=== PATIENT | female | born 1960 | race Caucasian/White ===

== ENCOUNTER 2020-11-23 08:28 | Outpatient (REF) | payer OTHER, SELFPAY ==
[2020-11-23 11:40] LABS: Cholesterol 193 mg/dL; HDL Cholesterol 77 mg/dL; LDL Cholesterol Calculated 107 mg/dl; Triglycerides 46 mg/dL
[2020-11-23 11:51] LABS: Vitamin D 25-OH Total 31.9 ng/mL (>30)
== END 2020-11-23 08:29 | disposition home or self-care (01) ==
LOC: HO.HMGCLDS 08:28
PROVIDERS: PCP Internal Medicine; Visit Provider Internal Medicine
DX: Z00.00 Encounter for general adult medical examination without abnormal findings (principal); E78.2 Mixed hyperlipidemia
CPT/HCPCS: 36415; 80061; 82306

== ENCOUNTER 2021-07-26 06:28 | Outpatient (REF) | payer OTHER, SELFPAY ==
[2021-07-26 11:37] LABS: Appearance Urine HAZY; Color Urine YELLOW; Glucose Urine UA NEG (NEG); Leukocyte Esterase Urine 1+ (NEG); Nitrite Urine NEG (NEG); PH 6.5 (5.0-8.0); Urine Blood TRACE (NEG); Urine Ketones NEG (NEG); Urine Protein NEG (NEG-TRACE)
[2021-07-26 11:43] LABS: Hematocrit 37.5 % (37-47); Hemoglobin 12.4 g/dl (12.0-16.0); Mean Corpuscular HGB Conc 33.1 g/dl (31.0-35.0); Mean Corpuscular Volume 87.6 fL (80-98); Mean Platelet Volume 10.7 fL (9.4-12.3); Platelet Count 191 X10*3/uL (160-400); Red Blood Count 4.28 X10*6/uL (4.20-5.50); Red Cell Distribution Width 12.8 % (11.0-16.0); White Blood Count 4.3 X10*3/uL (4.8-10.8)
[2021-07-26 13:08] LABS: Bacteria Urine 1+ /LPF; RBC Urine 0-2 /HPF (0); Squamous Epithelial Cell Urine 1+ /LPF
[2021-07-26 14:16] LABS: Alanine Aminotransferase 13 U/L (0-31); Albumin Level 4.2 g/dL (3.5-5.0); Alkaline Phosphatase 89 U/L (39-117); Anion Gap 12 (12-20); Aspartate Amino Transferase 21 U/L (5-31); Bilirubin Total 0.5 mg/dL (0.0-1.0); Blood Urea Nitrogen 7 mg/dL (9-16); Calcium 9.2 mg/dL (8.4-10.2); Carbon Dioxide 27 mmol/L (22-29); Chloride 105 mmol/L (96-108); Cholesterol 194 mg/dL; Estimated Glomerular Filt Rate > 60; Glucose Fasting 81 mg/dL (60-99); HDL Cholesterol 73 mg/dL; LDL Cholesterol Calculated 110 mg/dl; Potassium 3.7 mmol/L (3.3-5.1); Sodium 140 mmol/L (135-145); Total Protein 6.6 g/dL (6.5-8.0); Triglycerides 58 mg/dL
== END 2021-07-26 06:29 | disposition home or self-care (01) ==
LOC: HO.HMGCLDS 06:28
PROVIDERS: PCP Internal Medicine; Visit Provider Internal Medicine
DX: Z00.00 Encounter for general adult medical examination without abnormal findings (principal); E78.5 Hyperlipidemia, unspecified
CPT/HCPCS: 36415; 80053; 80061; 81001; 84443; 85027

== ENCOUNTER 2022-07-29 06:17 | Outpatient (REF) | payer OTHER, SELFPAY ==
[2022-07-29 11:25] LABS: Appearance Urine Clear; Color Urine Yellow; Glucose Urine UA Negative (Negative); Hematocrit 36.6 % (37.0-47.0); Hemoglobin 12.3 g/dl (12.0-16.0); Leukocyte Esterase Urine Negative (Negative); Mean Corpuscular HGB Conc 33.6 g/dl (31.0-35.0); Mean Corpuscular Hemoglobin 29.1 pg (27.0-33.0); Mean Corpuscular Volume 86.5 fL (80.0-98.0); Mean Platelet Volume 10.5 fL (9.4-12.3); Nitrite Urine Negative (Negative); Platelet Count 232 X10*3/uL (160-400); Red Blood Count 4.23 X10*6/uL (4.20-5.50); Specific Gravity - Urine 1.015 (1.005-1.025); Urine Blood Negative (Negative); Urine Ketones Negative (Negative); Urine Protein Negative (Neg-Trace); White Blood Count 4.8 X10*3/uL (4.8-10.8)
[2022-07-29 11:32] LABS: Bacteria Urine None Seen (None Seen); Hyaline Casts Urine 0-2 /LPF (0-2); RBC Urine 0-2 /HPF (0-2); Squamous Epithelial Cell Urine 0-2 /HPF (0-2); WBC Urine 0-5 /HPF (0-5)
[2022-07-29 11:37] LABS: Alanine Aminotransferase 14 U/L (0-31); Albumin Level 4.3 g/dL (3.5-5.0); Alkaline Phosphatase 99 U/L (39-117); Anion Gap 14 (12-20); Aspartate Amino Transferase 21 U/L (5-31); Bilirubin Total 0.6 mg/dL (0.0-1.0); Blood Urea Nitrogen 9 mg/dL (9-16); Calcium 9.2 mg/dL (8.4-10.2); Carbon Dioxide 25 mmol/L (22-29); Chloride 103 mmol/L (96-108); Cholesterol 207 mg/dL; Estimated Glomerular Filt Rate > 60; Glucose Fasting 90 mg/dL (60-99); HDL Cholesterol 65 mg/dL; LDL Cholesterol Calculated 130 mg/dl; Potassium 3.7 mmol/L (3.3-5.1); Sodium 138 mmol/L (135-145); Triglycerides 64 mg/dL
[2022-07-29 11:59] LABS: TSH reflex Free T4 3.58 uIU/mL (0.32-4.0)
== END 2022-07-29 06:18 | disposition home or self-care (01) ==
LOC: HO.HMGCLDS 06:17
PROVIDERS: PCP Internal Medicine; Visit Provider Internal Medicine
DX: Z00.00 Encounter for general adult medical examination without abnormal findings (principal)
CPT/HCPCS: 36415; 80053; 80061; 81001; 84443; 85027

== ENCOUNTER 2023-08-04 07:01 | Outpatient (REF) | payer OTHER, SELFPAY ==
[2023-08-04 11:09] LABS: MANUAL DIFF FLAG NO
[2023-08-04 11:20] LABS: Basophils Percent Auto 0.9 % (0-2); Eosinophils Absolute Auto 0.3 X10*3/uL (0.0-0.4); Eosinophils Percent Auto 5.7 % (0-4); Hematocrit 39.5 % (37.0-47.0); Hemoglobin 12.9 g/dl (12.0-16.0); Lymphocytes Absolute Auto 1.7 X10*3/uL (1.2-4.9); Lymphocytes Percent Auto 36.8 % (20-40); Mean Corpuscular HGB Conc 32.7 g/dl (31.0-35.0); Mean Corpuscular Hemoglobin 28.4 pg (27.0-33.0); Mean Platelet Volume 11.1 fL (9.4-12.3); Monocytes Absolute Auto 0.3 X10*3/uL (0.1-1.2); Monocytes Percent Auto 6.4 % (2-11); Neutrophils Absolute Auto 2.3 x10*3/uL (2.0-8.3); Neutrophils Percent Auto 50.2 % (45-73); Platelet Count 182 X10*3/uL (160-400); Red Blood Count 4.54 X10*6/uL (4.20-5.50); White Blood Count 4.5 X10*3/uL (4.8-10.8)
[2023-08-04 11:55] LABS: Alanine Aminotransferase 13 U/L (0-31); Albumin Level 4.1 g/dL (3.5-5.0); Alkaline Phosphatase 90 U/L (39-117); Anion Gap 15 (12-20); Aspartate Amino Transferase 22 U/L (5-31); Bilirubin Total 0.5 mg/dL (0.0-1.0); Blood Urea Nitrogen 12 mg/dL (9-16); Calcium 9.7 mg/dL (8.4-10.2); Carbon Dioxide 25 mmol/L (22-29); Chloride 105 mmol/L (96-108); Cholesterol 196 mg/dL (<200); Estimated Glomerular Filt Rate > 60; Glucose Fasting 83 mg/dL (60-99); HDL Cholesterol 70 mg/dL (>40); LDL Cholesterol Calculated 117 mg/dL (<100); Potassium 3.9 mmol/L (3.3-5.1); Sodium 141 mmol/L (135-145); Total Protein 7.1 g/dL (6.5-8.0); Triglycerides 47 mg/dL (<150)
[2023-08-04 12:14] LABS: TSH reflex Free T4 3.85 uIU/mL (0.32-4.0); Vitamin D 25-OH Total 37.3 ng/mL (>30)
== END 2023-08-04 07:02 | disposition home or self-care (01) ==
LOC: HO.HMGCLDS 07:01
PROVIDERS: PCP Internal Medicine; Visit Provider Internal Medicine
DX: Z00.00 Encounter for general adult medical examination without abnormal findings (principal); E78.5 Hyperlipidemia, unspecified; E55.9 Vitamin D deficiency, unspecified
CPT/HCPCS: 36415; 80053; 80061; 82306; 84443; 85025

== ENCOUNTER 2023-08-07 07:50 | Outpatient (AMB) | payer OTHER, SELFPAY ==
--- NOTE | 2023-08-07 08:05 | MHC.PC.OV ---
Vital Signs 08/07/23 08:06 Height 5 ft 4 in Weight 156 lb BMI 26.8 BP 116/74 Blood Pressure Location Lt brachial Position Sitting Pulse 81 Pulse Source Pulse Oximeter Pulse Oximetry (%) 98 Oxygen Delivery Method Room Air Intake Visit Reasons: annual PE Intake Note: Pt is here today for PE. Allergies sulfamethoxazole [From Bactrim] Allergy (Intermediate, Verified 08/07/23 08:06) Rash trimethoprim [From Bactrim] Allergy (Intermediate, Verified 08/07/23 08:06) Rash amoxicillin [Augmentin] Allergy (Unknown, Verified 08/07/23 08:06) unknown clavulanic acid [Augmentin] Allergy (Unknown, Verified 08/07/23 08:06) unknown epinephrine Allergy (Unknown, Verified 08/07/23 08:06) unknown Tobacco use date assessed: 08/07/23 Dental Screening Dental Screen Date: 08/07/23 Did you have a dental visit in the last 12 months?: Yes Did you have a dental problem in the last 6 months where you did not have access to dental care?: No Was dental information given to patient?: Patient has dentist HPI annual PE HPI Details Pt presents for PE. [facility] Medical History Normal Pap smear Annual physical exam Hyperlipidemia Osteopenia History of mammogram Surgical History H/O colonoscopy No pertinent past surgical history Family History Father COPD (chronic obstructive pulmonary disease) Mother COPD (chronic obstructive pulmonary disease) Sister Cancer of pancreas Sister History of bilateral mastectomy Social History Housing: House Patient Tobacco Use Status: Never used Tobacco e-Cigarette/Vaping Use: Never Used Current occupational status: employed Cognitive needs: No Hearing needs: No Vision needs: Yes Questionnaire PHQ-9 Over the last 2 weeks, how often have you been bothered by any of the following problems? 1. Little interest or pleasure in doing things: not at all 2. Feeling down, depressed, or hopeless: not at all 3. Trouble falling or staying asleep, or sleeping too much: not at all 4. Feeling tired or having little energy: not at all 5. Poor appetite or overeating: not at all 6. Feeling bad about yourself - or that you are a failure or have let yourself or your family down: not at all 7. Trouble concentrating on things, such as reading the newspaper or watching television: not at all 8. Moving or speaking so slowly that other people could have noticed. Or the opposite - being so fidgety or restless that you have been moving around a lot more than usual: not at all 9. Thoughts that you would be better off or of hurting yourself in some way: not at all Total score: 0 Depression Screening Interpretation: Negative Source: Developed by Drs. Sanchez Orozco, Yaima Shah, Myron Cazares and colleagues, with an educational barbara from [employer]. Thrive Questionnaire Date Thrive assessed: 08/07/23 I am a: Patient What is your living situation today?: I have a steady place to live Within the past 12 months, did the food you bought not last and you didn't have the money to get more?: Never true Within the past 12 months, did you worry whether your food would run out before you got money to buy more?: Never true Do you have trouble paying for medicines?: No Do you have trouble getting transportation to medical appointments?: No Do you have trouble paying your heating and electricity bill?: No Do you have trouble taking care of your child, family member or friend?: No Do you have trouble with day-to-day activities such as bathing, preparing meals, shopping, managing finances, etc.?: No Are you currently unemployed and looking for a job?: No Are you interested in more education?: No Please select the resources that you would like help with: None AUDIT C Alcohol Use Questionnaire (AUDIT-C) 1. How often do you have a drink containing alcohol?: Monthly or less 2. How many drinks containing alcohol do you have on a typical day when you are drinking?: 1 or 2 3. How often do you have six or more drinks on one occasion?: Never Total Score: 1 LUCY-7 AMB Questionnaire LUCY-7 Date LUCY - 7 assessed: 08/07/23 Feeling nervous, anxious, or on edge: 0 = Not at all Not being able to stop or control worryin = Not at all Worrying too much about different things: 0 = Not at all Trouble relaxin = Not at all Being so restless that it is hard to sit still: 0 = Not at all Becoming easily annoyed or irritable: 0 = Not at all Feeling afraid as if something awful might happen: 0 = Not at all Total LUCY-7 score (0-4 normal; 5-9 mild; 10-14 moderate; 15-21 severe): 0 Source: Developed by Drs. Sanchez Orozco, Yaima Shah, Myron Cazares and colleagues, with an educational barbara from [employer]. Review of Systems Const All systems reviewed & are unremarkable except as noted in HPI and below Reports no additional complaints Eyes Reports no additional complaints ENT Reports no additional complaints Card Reports no additional complaints Resp Reports no additional complaints GI Reports no additional complaints Musc Reports no additional complaints Skin/Breast Reports system reviewed and no additional complaints, except as documented Physical exam (Primary Care) Vital Signs: Last Vital Signs Pulse 81 08/07/23 08:06 BP 116/74 08/07/23 08:06 Pulse Ox 98 08/07/23 08:06 Oxygen Delivery Method Room Air 08/07/23 08:06 BMI result Body Mass Index 26.8 Tobacco/Smoking Status: Tobacco use Status Tobacco use date assessed 08/07/23 08/07/23 08:11 Patient Tobacco Use Status Never used Tobacco 08/07/23 08:11 e-Cigarette/Vaping Use Never Used 08/07/23 08:11 Depression Screening Interpretation: Negative Thrive Assessment: Date of Thrive Assessment Date Thrive assessed 08/02/22 08/07/23 08:11 Const General: no acute distress HENMT Head: Yes normal to inspection Ears: hearing grossly normal bilaterally General nose exam: Normal external nose present Face and sinus: Yes normal facial exam Mouth: Normal oral and palatal mucosa present Teeth and gingiva: dentition normal Eyes General: appearance normal, both eyes and all related structures Neck Neck: Yes no lymphadenopathy and Yes supple Resp Effort & Inspection: normal respiratory effort Auscultation: clear to auscultation bilaterally Cardio Rhythm: regular rhythm Heart sounds: S1 normal heart sound present and S2 normal heart sound present GI Inspection: Yes normal to inspection Palpation (GI): Soft to palpation Percussion: Yes normal to percussion Auscultation: normal bowel sounds External Female Exam: normal external appearance Assessment and Plan Assessment & Plan (1) Annual physical exam: Code(s): Z00.00 - Encounter for general adult medical examination without abnormal findings Plan: well balanced diet, regular exercise, up to date with mammogram, colonoscopy, 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 Panel Fast 365 Days Z00.00 - Encounter for general adult medical examination without abnormal findings Lipid Panel 365 Days Z00.00 - Encounter for general adult medical examination without abnormal findings Complete Blood Count Auto Diff 365 Days Z00.00 - Encounter for general adult medical examination without abnormal findings Coding Level of Care Code Est Pt Prev Care 40-64y(75381) Diagnoses Annual physical exam Z00.00
[2023-08-07 08:06] VITALS: BP 116/74; PULSE 81; O2SAT 98; BMI 26.8
== END 2023-08-07 08:26 | disposition home or self-care (01) ==
PROVIDERS: Visit Provider Internal Medicine
DX: Z00.00 Encounter for general adult medical examination without abnormal findings (principal)
CPT/HCPCS: 99396

== ENCOUNTER 2024-08-07 09:51 | Outpatient (REF) | payer OTHER, SELFPAY ==
[2024-08-07 13:39] LABS: MANUAL DIFF FLAG NO
[2024-08-07 14:02] LABS: Basophils Absolute Auto 0.1 X10*3/uL (0.0-0.2); Basophils Percent Auto 1.1 % (0-2); Eosinophils Absolute Auto 0.2 X10*3/uL (0.0-0.4); Eosinophils Percent Auto 4.7 % (0-4); Hematocrit 39.8 % (37.0-47.0); Hemoglobin 13.4 g/dl (12.0-16.0); Imm Gran Abs Auto 0.02 X10*3/uL (0.00-0.03); Imm Gran Pct Auto 0.4 % (0.0-0.4); Lymphocytes Absolute Auto 1.4 X10*3/uL (1.2-4.9); Lymphocytes Percent Auto 28.7 % (20-40); Mean Corpuscular HGB Conc 33.7 g/dl (31.0-35.0); Mean Corpuscular Hemoglobin 28.9 pg (27.0-33.0); Mean Corpuscular Volume 85.8 fL (80.0-98.0); Monocytes Absolute Auto 0.3 X10*3/uL (0.1-1.2); Neutrophils Absolute Auto 2.7 x10*3/uL (2.0-8.3); Neutrophils Percent Auto 58.1 % (45-73); Platelet Count 194 X10*3/uL (160-400); Red Blood Count 4.64 X10*6/uL (4.20-5.50); Red Cell Distribution Width 12.9 % (11.0-16.0); White Blood Count 4.7 X10*3/uL (4.8-10.8)
[2024-08-07 14:08] LABS: Alanine Aminotransferase 14 U/L (0-31); Albumin Level 4.3 g/dL (3.5-5.0); Alkaline Phosphatase 95 U/L (39-117); Anion Gap 12 (12-20); Aspartate Amino Transferase 22 U/L (5-31); Bilirubin Total 0.6 mg/dL (0.0-1.0); Blood Urea Nitrogen 10 mg/dL (9-16); Calcium 9.5 mg/dL (8.4-10.2); Carbon Dioxide 25 mmol/L (22-29); Chloride 106 mmol/L (96-108); Cholesterol 198 mg/dL (<200); Estimated Glomerular Filt Rate > 60; Glucose Fasting 89 mg/dL (60-99); HDL Cholesterol 73 mg/dL (>40); LDL Cholesterol Calculated 113 mg/dL (<100); Potassium 3.6 mmol/L (3.3-5.1); Sodium 139 mmol/L (135-145); Total Protein 7.5 g/dL (6.5-8.0); Triglycerides 60 mg/dL (<150)
== END 2024-08-07 09:52 | disposition home or self-care (01) ==
LOC: HO.HMGCLDS 09:51
PROVIDERS: PCP Internal Medicine; Visit Provider Internal Medicine
DX: Z00.00 Encounter for general adult medical examination without abnormal findings (principal)
CPT/HCPCS: 36415; 80053; 80061; 85025

== ENCOUNTER 2024-08-08 07:29 | Outpatient (AMB) | payer OTHER, SELFPAY ==
--- NOTE | 2024-08-08 07:40 | MHC.PC.OV ---
Vital Signs 08/08/24 07:42 Height 5 ft 4 in Weight 155 lb BMI 26.6 BP 120/80 Blood Pressure Location Lt brachial Position Sitting Pulse 75 Pulse Source Pulse Oximeter Pulse Oximetry (%) 96 Oxygen Delivery Method Room Air Intake Visit Reasons: annual PE Intake Note: Pt is here today for her PE Allergies sulfamethoxazole [From Bactrim] Allergy (Intermediate, Verified 08/08/24 07:42) Rash trimethoprim [From Bactrim] Allergy (Intermediate, Verified 08/08/24 07:42) Rash amoxicillin [Augmentin] Allergy (Unknown, Verified 08/08/24 07:42) unknown clavulanic acid [Augmentin] Allergy (Unknown, Verified 08/08/24 07:42) unknown epinephrine Allergy (Unknown, Verified 08/08/24 07:42) unknown Medication List - Last Reconciled 08/08/24 by Zohra Sánchez MD No Known Home Meds Tobacco use date assessed: 08/08/24 Dental Screening Dental Screen Date: 08/08/24 Did you have a dental visit in the last 12 months?: Yes Did you have a dental problem in the last 6 months where you did not have access to dental care?: No Was dental information given to patient?: Patient has dentist HPI annual PE HPI Details Pt presents for PE. [facility] Medical History Normal Pap smear Annual physical exam Hyperlipidemia Osteopenia History of mammogram Surgical History H/O colonoscopy No pertinent past surgical history Family History Father COPD (chronic obstructive pulmonary disease) Mother COPD (chronic obstructive pulmonary disease) Sister Cancer of pancreas Sister History of bilateral mastectomy Social History Housing: House Patient Tobacco Use Status: Never used Tobacco e-Cigarette/Vaping Use: Never Used Current occupational status: employed Cognitive needs: No Hearing needs: No Vision needs: Yes Questionnaire PHQ-9 Over the last 2 weeks, how often have you been bothered by any of the following problems? 1. Little interest or pleasure in doing things: not at all 2. Feeling down, depressed, or hopeless: not at all 3. Trouble falling or staying asleep, or sleeping too much: not at all 4. Feeling tired or having little energy: not at all 5. Poor appetite or overeating: not at all 6. Feeling bad about yourself - or that you are a failure or have let yourself or your family down: not at all 7. Trouble concentrating on things, such as reading the newspaper or watching television: not at all 8. Moving or speaking so slowly that other people could have noticed. Or the opposite - being so fidgety or restless that you have been moving around a lot more than usual: not at all 9. Thoughts that you would be better off or of hurting yourself in some way: not at all Total score: 0 Depression Screening Interpretation: Negative Depression Screening Done: Yes [id number] - PHQ-9 Billing: Yes Source: Developed by Drs. Sanchez Orozco, Yaima Shah, Myron Cazares and colleagues, with an educational barbara from [employer]. Thrive Questionnaire Date Thrive assessed: 08/08/24 I am a: Patient What is your living situation today?: I have a steady place to live Within the past 12 months, did the food you bought not last and you didn't have the money to get more?: Never true Within the past 12 months, did you worry whether your food would run out before you got money to buy more?: Never true Do you have trouble paying for medicines?: No Do you have trouble getting transportation to medical appointments?: No Do you have trouble paying your heating and electricity bill?: No Do you have trouble taking care of your child, family member or friend?: No Do you have trouble with day-to-day activities such as bathing, preparing meals, shopping, managing finances, etc.?: No Are you interested in more education?: No Please select the resources that you would like help with: None Currently or been in a relationship where the following occur: No concerns reported THRIVE Score: 0 AUDIT C Alcohol Use Questionnaire (AUDIT-C) 1. How often do you have a drink containing alcohol?: Never Total Score: 0 LUCY-7 AMB Questionnaire LUCY-7 Date LUCY - 7 assessed: 08/08/24 Feeling nervous, anxious, or on edge: 0 = Not at all Not being able to stop or control worryin = Not at all Worrying too much about different things: 0 = Not at all Trouble relaxin = Not at all Being so restless that it is hard to sit still: 0 = Not at all Becoming easily annoyed or irritable: 0 = Not at all Feeling afraid as if something awful might happen: 0 = Not at all Total LUCY-7 score (0-4 normal; 5-9 mild; 10-14 moderate; 15-21 severe): 0 Source: Developed by Drs. Sanchez Orozco, Yaima Shah, Myron Cazares and colleagues, with an educational barbara from [employer]. Review of Systems Const All systems reviewed & are unremarkable except as noted in HPI and below Reports no additional complaints Eyes Reports no additional complaints ENT Reports no additional complaints Card Reports no additional complaints Resp Reports no additional complaints GI Reports no additional complaints Reports no additional complaints Physical exam (Primary Care) Vital Signs: Last Vital Signs Pulse 75 08/08/24 07:42 BP 136/84 08/08/24 07:42 Pulse Ox 96 08/08/24 07:42 Oxygen Delivery Method Room Air 08/08/24 07:42 BMI result Body Mass Index 26.6 Tobacco/Smoking Status: Tobacco use Status Tobacco use date assessed 08/08/24 08/08/24 07:45 Patient Tobacco Use Status Never used Tobacco 08/08/24 07:41 e-Cigarette/Vaping Use Never Used 08/08/24 07:41 PHQ-9: PHQ-9 Score PHQ-9: Total score 0 08/08/24 07:41 Depression Screening Interpretation: Negative Thrive Assessment: Date of Thrive Assessment Date Thrive assessed 08/08/24 08/08/24 07:45 Currently or been in a relationship where the following occur: No concerns reported Const General: no acute distress HENMT Head: Yes normal to inspection Face and sinus: Yes normal facial exam Throat: Yes posterior oropharynx normal Eyes General: appearance normal, both eyes and all related structures Neck Neck: Yes no lymphadenopathy and Yes supple Resp Effort & Inspection: normal respiratory effort Auscultation: clear to auscultation bilaterally Cardio Rhythm: regular rhythm Heart sounds: S1 normal heart sound present and S2 normal heart sound present GI Inspection: Yes normal to inspection Palpation (GI): Soft to palpation Percussion: Yes normal to percussion Auscultation: normal bowel sounds Coding Level of Care Code Est Pt Prev Care 40-64y(05037) Diagnoses Annual physical exam Z00.00 Assessment & Plan Assessment & Plan (1) Annual physical exam: Code(s): Z00.00 - Encounter for general adult medical examination without abnormal findings Category: Medical Plan: WELL-BALANCED DIET REGULAR PHYSICAL ACTIVITY DISCUSSED WITH THE PATIENT.. 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 Panel Fast 1 Year E55.9 - Vitamin D deficiency, unspecified, Z00.00 - Encounter for general adult medical examination without abnormal findings Complete Blood Count Auto Diff 1 Year E55.9 - Vitamin D deficiency, unspecified, Z00.00 - Encounter for general adult medical examination without abnormal findings Vitamin D 25-OH Total 1 Year E55.9 - Vitamin D deficiency, unspecified, Z00.00 - Encounter for general adult medical examination without abnormal findings
[2024-08-08 07:42] VITALS: BP 120/80; PULSE 75; O2SAT 96; BMI 26.6
== END 2024-08-08 08:16 | disposition home or self-care (01) ==
PROVIDERS: PCP Internal Medicine; Visit Provider Internal Medicine
DX: Z00.00 Encounter for general adult medical examination without abnormal findings (principal)

== ENCOUNTER → 2024-08-08 07:29 | Outpatient (BNVA) | payer MEDICAID, SELFPAY | PROVIDERS: PCP Internal Medicine; Visit Provider Internal Medicine | DX: Z00.00 Encounter for general adult medical examination without abnormal findings (principal); E78.5 Hyperlipidemia, unspecified; E55.9 Vitamin D deficiency, unspecified | CPT/HCPCS: 96127; 99396 ==

== ENCOUNTER 2024-11-08 08:43 | Outpatient (AMB) | payer OTHER, SELFPAY ==
--- NOTE | 2024-11-08 09:08 | AM.OFFWIN_ITS ---
Intake Vital Signs 11/08/24 09:10 Weight 162 lb BP 130/80 Blood Pressure Location Lt brachial Position Sitting Pulse 90 Pulse Source Pulse Oximeter Pulse Oximetry (%) 98 Oxygen Delivery Method Room Air Intake Visit Reasons: EP-rt arm pain Intake Note: Patient here for right arm injury, she was walking on treadmill and stepped down and left it running and when she went to get back on it she fell and grabbed on to the handle. Patient Tobacco Use Status: Never used Tobacco Allergies sulfamethoxazole [From Bactrim] Allergy (Intermediate, Verified 11/08/24 09:11) Rash trimethoprim [From Bactrim] Allergy (Intermediate, Verified 11/08/24 09:11) Rash amoxicillin [Augmentin] Allergy (Unknown, Verified 11/08/24 09:11) unknown clavulanic acid [Augmentin] Allergy (Unknown, Verified 11/08/24 09:11) unknown epinephrine Allergy (Unknown, Verified 11/08/24 09:11) unknown Do you need a note to return to daycare/school/sports/work: No HPI EP-rt arm pain HPI Details This is a 64-year-old female patient who presents to the walk-in clinic today with a right upper arm injury. She states that she was using her treadmill at home, and when getting back onto it after stepping off briefly, she lost her balance and held on to the side rail, while treadmill was running. This pulled on her right arm and she has been sore since this incident. She denies feeling any popping or tearing sensation. She feels some soreness on the outside of her person lower deltoid area. She states she has good shoulder and elbow mobility. Denies any swelling. Has not utilized any home treatment for this. [facility] Medical History Normal Pap smear Annual physical exam Hyperlipidemia Osteopenia History of mammogram Surgical History H/O colonoscopy No pertinent past surgical history Family History Father COPD (chronic obstructive pulmonary disease) Mother COPD (chronic obstructive pulmonary disease) Sister Cancer of pancreas Sister History of bilateral mastectomy Social History Housing: House Patient Tobacco Use Status: Never used Tobacco e-Cigarette/Vaping Use: Never Used Current occupational status: employed Cognitive needs: No Hearing needs: No Vision needs: Yes Review of Systems Const All systems reviewed & are unremarkable except as noted in HPI and below Physical Exam Vital Signs: Last Vital Signs Pulse 90 11/08/24 09:10 BP 130/80 11/08/24 09:10 Pulse Ox 98 11/08/24 09:10 Oxygen Delivery Method Room Air 11/08/24 09:10 Const General: cooperative, healthy appearing, comfortable and no acute distress Limitations: no limitations HEENT Head: Yes normal to inspection Ears: hearing grossly normal bilaterally Resp Effort & Inspection: normal respiratory effort Skin General skin exam: no rashes or lesions noted Neuro General: tone normal and moves all extremities Extrem Other: Mild tenderness right upper arm at lower aspect/insertion of deltoid. No swelling, bruising, bulging, or excessive warmth noted. Full ROM elbow and shoulder. No signs of RTC impingement. Equal/strong hand strength bilaterally. Normal capillary refill. Psych Appearance: grossly normal Mental Status: mental status grossly normal Speech and movement: Normal speech and movement present Assessment & Plan Assessment & Plan (1) Strain of right deltoid muscle: Code(s): S46.811A - Strain of other muscles, fascia and tendons at shoulder and upper arm level, right arm, initial encounter Qualifiers: Encounter type: initial encounter Qualified Code(s): S46.811A - Strain of other muscles, fascia and tendons at shoulder and upper arm level, right arm, initial encounter Plan: Symptoms consistent with myofascial strain. Advised rest, heat/ice application as tolerated, gentle [id number] exercises, use of NSAIDs. Offered prescription NSAIDs, however patient is going to take [id number] Motrin. We discussed a regimen of 600mg 2-3 times per day for the next several days to see if this helps. We discussed that if symptoms worsen or new symptoms develop, including increased pain, swelling of area, she should return to the clinic or f/e with PCP. She verbalizes understanding and agrees to plan. Coding Level of Care Code Est Pt Level 4 (87535) Diagnoses Strain of right deltoid muscle, initial encounter S46.811A Encounter type: initial encounter
[2024-11-08 09:10] VITALS: BP 130/80; PULSE 90; O2SAT 98
== END 2024-11-08 09:45 | disposition home or self-care (01) ==
PROVIDERS: PCP Internal Medicine; Visit Provider Nurse Practitioner Family
DX: S46.811A Strain of other muscles, fascia and tendons at shoulder and upper arm level, right arm, initial encounter (principal)

== ENCOUNTER → 2024-11-08 08:43 | Outpatient (BNVA) | payer OTHER, SELFPAY | PROVIDERS: PCP Internal Medicine | DX: S46.811A Strain of other muscles, fascia and tendons at shoulder and upper arm level, right arm, initial encounter (principal) | CPT/HCPCS: 99212 ==

== ENCOUNTER 2024-12-26 08:00 | Outpatient (AMB) | payer OTHER, SELFPAY ==
[2024-12-26 08:08] VITALS: BP 130/84; PULSE 93; O2SAT 98
--- NOTE | 2024-12-26 08:08 | AM.OFFWIN_ITS ---
Intake Vital Signs 12/26/24 08:08 Weight 160 lb BP 130/84 Blood Pressure Location Lt brachial Position Sitting Pulse 93 Pulse Source Pulse Oximeter Pulse Oximetry (%) 98 Oxygen Delivery Method Room Air Intake Visit Reasons: EP-rt arm muscle strain Intake Note: Patient here because she would like to follow up on her right arm muscle strain that she was seen here for a couple of weeks ago. Patient Tobacco Use Status: Never used Tobacco Allergies sulfamethoxazole [From Bactrim] Allergy (Intermediate, Verified 12/26/24 08:10) Rash trimethoprim [From Bactrim] Allergy (Intermediate, Verified 12/26/24 08:10) Rash amoxicillin [Augmentin] Allergy (Unknown, Verified 12/26/24 08:10) unknown clavulanic acid [Augmentin] Allergy (Unknown, Verified 12/26/24 08:10) unknown epinephrine Allergy (Unknown, Verified 12/26/24 08:10) unknown Do you need a note to return to daycare/school/sports/work: No HPI HPI Comments History of Present Illness Details 64 y/o female patient [facility]/o right Arm Deltoid muscle strain for 6 weeks now. Pt injured her muscle while working out on Treadmill back in November. Reports pain with ROM. She has been using Acet aminophen, ICE/Hot with some relief. Reports that pain worse at night time while sleeping - pain keeps her up. [facility] Medical History Normal Pap smear Annual physical exam Hyperlipidemia Osteopenia History of mammogram Surgical History H/O colonoscopy No pertinent past surgical history Family History Father COPD (chronic obstructive pulmonary disease) Mother COPD (chronic obstructive pulmonary disease) Sister Cancer of pancreas Sister History of bilateral mastectomy Social History Housing: House Patient Tobacco Use Status: Never used Tobacco e-Cigarette/Vaping Use: Never Used Current occupational status: employed Cognitive needs: No Hearing needs: No Vision needs: Yes Review of Systems Const All systems reviewed & are unremarkable except as noted in HPI and below Physical Exam Vital Signs: Last Vital Signs Pulse 93 12/26/24 08:08 BP 130/84 12/26/24 08:08 Pulse Ox 98 12/26/24 08:08 Oxygen Delivery Method Room Air 12/26/24 08:08 Const General: cooperative and no acute distress Nutritional Appearance: overweight Orientation/consciousness: patient oriented x3 Neuro General: patient oriented x3, gait normal and moves all extremities Extrem Right upper extremity: shoulder/upper arm Details: normal to inspection, tenderness Location: over the biceps tendon and over the deltoid bursa and normal ROM (Pain with ROM); no swelling, no ecchymosis and no crepitus Assessment & Plan Assessment & Plan (1) Strain of right deltoid muscle: Code(s): S46.811A - Strain of other muscles, fascia and tendons at shoulder and upper arm level, right arm, initial encounter Qualifiers: Encounter type: subsequent encounter Qualified Code(s): S46.811D - Strain of other muscles, fascia and tendons at shoulder and upper arm level, right arm, subsequent encounter Plan: Pain is improving, continue taking Acetaminophen or NSAIDs for pain relief Ordered PT Ordered Muscle relaxants. Orders: Orders PT Evaluation and Treatment Today S46.811D - Strain of other muscles, fascia and tendons at shoulder and upper arm level, right arm, subsequent encounter Medications: New cyclobenzaprine 5 mg PO BEDTIME 10 tabs 0RF S46.811D - Strain of other muscles, fascia and tendons at shoulder and upper arm level, right arm, subsequent encounter Coding Level of Care Code Est Pt Level 4 (61109) Diagnoses Strain of right deltoid muscle, subsequent encounter S46.811D Encounter type: subsequent encounter Time Spent (min) 20
== END 2024-12-26 08:29 | disposition home or self-care (01) ==
PROVIDERS: PCP Internal Medicine; Visit Provider Nurse Practitioner Family
DX: S46.811D Strain of other muscles, fascia and tendons at shoulder and upper arm level, right arm, subsequent encounter (principal)

== ENCOUNTER → 2024-12-26 08:00 | Outpatient (BNVA) | payer OTHER, SELFPAY | PROVIDERS: PCP Internal Medicine | DX: S46.811D Strain of other muscles, fascia and tendons at shoulder and upper arm level, right arm, subsequent encounter (principal) | CPT/HCPCS: 99212 ==

== ENCOUNTER 2025-02-25 07:00 | Outpatient (RCR) | payer OTHER, SELFPAY ==
--- NOTE | 2025-01-27 09:12 | MHC.PT.EP ---
[facility] [place] [facility] [place] [facility] [address] Meraz [address] [phone] F: [phone] F: [phone] F: [phone] F: [phone] Physical Therapy Plan of Care Date of Evaluation: 01/27/25 Date of Surgery: Diagnosis: strain of right deltoid muscle. Assessment: Patient is a 64 year old R handed female who presents with s/s consistent with strain of R deltoid muscle, R shoulder pain. She works with daily job demands including mostly reading and computer work. Patient past medical history is unremarkable. Current impairments include pain, posture, ROM, strength, activity tolerance and functional mobility. Functional limitations include decreased ability to reach around back, lift, carry, push, pull, sleep and dress. Patient is motivated with good rehab potential. Skilled PT will address impairments and functional limitations in order to achieve goals. Frequency and Duration: The patient will be seen 2x/week for 5 weeks Short Term Goals: I with HEP -2 weeks AROM full and pain free - 3 weeks Pain free sleeping - 3 weeks Max pain with ADLs 4/10 - 3 weeks Painter Helper Goals: Max pain with ADLs 2/10 - 5 weeks Strength 4/5 grossly - 5 weeks SPADI 10130 - 5 weeks Treatment Plan: Modalities to reduce pain, spasms and effusion. Manual therapy to restore motion and function. Therapeutic exercise to improve strength and flexibility. Neuromuscular re-education for posture and balance. Therapeutic activities to return to functional activities of daily living. Electronically signed by: Emilio Lang, PT Please sign and return to therapist. Thank you for your referral.
--- NOTE | 2025-05-16 10:02 | MHC.PT.DC ---
[facility] [place] [facility] [place] [facility] [place] [facility] [address] Pastor Meraz [address] [phone] F: [phone] F: [phone] F: [phone] F: [phone] Physical Therapy Discharge Report Diagnosis: strain of right deltoid muscle. Date of Surgery: Date of Evaluation: 01/27/25 Date of Discharge: 02/25/25 Treatments to Date: 5 Cancellations to Date: No Shows to Date: Discharge Status: Improved Function Independent with HEP Discharge Summary: 02/25/25: I with HEP. AROM full and pain free. pain free sleeping. Max pain 2/10. Strength 4/5 grossly except ER 4-/5. Pt has progressed towards or met all goals. no adverse reactions compliant throughout and appropriate to d/c to HEP At this time. 02/17/25: pt has been progressing well with skilled PT. less pain and tissue tension but s/s still persist to small degree. continue to progress as tolerated. 02/10/25: pt progressing well with skilled PT. no adverse reactions. continue to progress as tolerated. updated HEP. some ant delt tightness noted. 02/03/25: pt responded well to progression in strength and stretching. educated in posture. we will progress as tolerated. Patient is a 64 year old R handed female who presents with s/s consistent with strain of R deltoid muscle, R shoulder pain. She works with daily job demands including mostly reading and computer work. Patient past medical history is unremarkable. Current impairments include pain, posture, ROM, strength, activity tolerance and functional mobility. Functional limitations include decreased ability to reach around back, lift, carry, push, pull, sleep and dress. Patient is motivated with good rehab potential. Skilled PT will address impairments and functional limitations in order to achieve goals. Electronically signed by: Emilio Lang, PT Please sign and return to therapist. Thank you for your referral.
== END 2025-05-16 10:02 | disposition home or self-care (01) ==
LOC: HO.PTCHIC 07:00
PROVIDERS: PCP Internal Medicine; Visit Provider Nurse Practitioner Family
DX: S46.811D Strain of other muscles, fascia and tendons at shoulder and upper arm level, right arm, subsequent encounter (principal); X58.XXXD Exposure to other specified factors, subsequent encounter
CPT/HCPCS: 97110; 97140; 97161

== ENCOUNTER 2025-08-08 06:57 | Outpatient (REF) | payer OTHER, SELFPAY ==
--- OUTSIDE RECORDS SUMMARY | 2025-08-08 06:59 | XMS_ITS | Clinical Summary ---
Author Organization [facility] Address [address] [place] [phone] Phone Care Team Providers Care Marker Assembler Name Role Phone Zohra Sánchez MD Primary Care Provider [phone] Surgical History Surgery Date Site/Laterality Comments BREAST BIOPSY PROCEDURE: [place] BIOPSY BREAST OPEN INCISIONAL OTHER SURGICAL HISTORY PROCEDURE: HISTORY OTHER; COMMENT: cervix cryosurgery Medical History Medical History Date Comments History of rectal bleeding 07/23/2018 DX:Hi story of rectal bleeding Osteopenia 07/23/2018 DX:Osteopenia Pelvic mass 01/03/2018 DX:Pelvic mass Family History Medical History Relation Name Comments COPD Father COPD Mother Breast cancer Paternal Grandmother Breast cancer Sister Relation Name Status Comments Father Mother Paternal Grandmother Sister Social History Tobacco Use Types Packs/Day Years Used Date Smoking Tobacco: Never Smokeless Tobacco: Never Alcohol Use Standard Drinks/Week Comments No 0 (1 standard drink = 0.6 oz pur e alcohol) Comments No Sex and Gender Information Value Date Recorded Sex Assigned at Female 01/22/2025 2:12 PM EDT Legal Sex Female 10:59 PM EST Gender Identity Female 01/22/2025 2:12 PM EDT Sexual Orientation Straight 01/22/2025 2: 12 PM EDT Obstetrics History Last Filed Vital Signs Vital Sign Reading Time Taken Comments Blood Pressure - - Pulse - - Temperature - - Respiratory Rate - - Oxygen Saturation - - Inhaled Oxygen Concentration - - Weight 69.9 kg (154 lb) 03/26/2025 7:48 AM EDT Height 162.6 cm (5' 4 ) 03/26/2025 7:48 AM EDT Body Mass Index 26.43 03/26/2025 7:48 AM EDT Plan of Treatment Upcoming Encounters Date Type Department Care Team (Late st Contact Info) Description 10/17/2025 7:30 AM EST [facility]ointment [facility] [address] [phone] Health Maintenance Due Date Last Done Comments Colorectal Cancer Screening: Colonoscopy 1962 DTaP,Tdap,and Td Vaccines (1 - Tdap) 1981 Cervical Cancer Screening: Pap Smear 1983 Pneumococcal Vaccine: 50+ Years (1 of 1 - PCV) 02/26/2012 HIV Screening 10/09/2022 Hepatitis C Screening 10/09/2022 Social Influencers of Health Screening 10/09/2022 Depression Screening 11/06/2024 Influenza Vaccine (#1) 2025 07/29/2020 Breast Cancer Screening 04/18/2027 04/18/20, 03/26/2025, 03/25/2024, Additional history exists RSV Immunization Adult Patients (1 - 1-dose 75+ series) 2037 Zoster Vaccines Completed 05/21/2022, 03/05/2022 COVID-19 Vaccine Completed 08/27/2024, , 07/17/2022, Additional history exists HIB Vaccines Aged Out No longer eligi ble based on patient's age to complete this topic HPV Vaccines Aged Out No longer eligi ble based on patient's age to complete this topic Hepatitis A Vaccines Aged Out No long er eligible based on patient's age to complete this topic Hepatitis B Vaccines Aged Out No long er eligible based on patient's age to complete this topic IPV Vaccines Aged Out No longer eligi ble based on patient's age to complete this topic MMR Vaccines Aged Out No longer eligi ble based on patient's age to complete this topic Meningococcal ACWY Vaccine Aged Out N o longer eligible based on patient's age to complete this topic Meningococcal B Vaccine Aged Out No l onger eligible based on patient's age to complete this topic RSV Immunization Patients Under 20 months Aged Out No longer eligible based on patient's age to complete this topic Varicella Vaccines Aged Out No longer eligible based on patient's age to complete this topic Procedures Procedure Name Priority Date/Time Associated Diagnosis Comments MG MAMMO DIAGNOSTIC ADDL VIEWS RIGHT Routine 04/18/2025 10:07 AM EDT Breast asymmetry from Last 3 Months or Most Recently Relevant to Health Maintenance Results * MG Mammo Diagnostic Addl Views Right (04/18/2025 10:07 AM EDT) Anatomical Region Laterality Modality Breast Right Mammography 04/18/2025 10:1 1 AM EDT Impressions 04/18/2025 10:16 AM EDT Decreased prominence of an asymmetry in the upper right breast with diagnostic imaging. This may be partially related to 2 small cysts superimposed upon some fibroglandular tissue. Recommend diagnostic right mammography in 6 months ASSESSMENT: BI-RADS 3: PROBABLY BENIGN RECOMMENDATION(S): 1: Follow-up diagnostic mammogram RIGHT in 6 months. [facility] at [address], [address] -------- FINAL REPORT -------- Dictated By: Dino Vazquez Dictated Date: 04/18/2025 10:11 ET Assigned Physician: Dino Vazquez Reviewed and Electronically Signed By: Dino Vazquez Signed Date: 04/18/2025 10:16 ET Workstation ID: [id number] Transcribed By: Self Edit Transcribed Date: 04/18/2025 10:11 ET Narrative 04/18/2025 10:16 AM EDT EXAM: DIAGNOSTIC MAMMOGRAPHY, UNILATERAL RIGHT ULTRASOUND: DIAGNOSTIC ULTRASOUND, UNILATERAL RIGHT HISTORY: Abnormal screening mammogram. Incompletely characterized asymmetry superior right breast COMPARISON: Right mammography 03/26/25, 03/25/24, 03/15/23, a 03/25/22 TECHNIQUE: Tomosynthesis of the right breast using full field technique in the lateral medial projection. ADDITIONAL IMAGING: Tomosynthesis of the right breast in the MLO projection using spot compression High-frequency linear transducer ultrasound of the right breast targeted to the area(s) of clinical concern. Computer aided detection was not utilized. TISSUE DENSITY: There are scattered areas of fibroglandular density. (BI-RADS category B) FINDINGS: MAMMOGRAPHY: RIGHT BREAST: The suspected asymmetry in the superior right breast becomes much less prominent with diagnostic imaging. There is an equivocal small round equal density mass in the upper breast. No distortion. No suspicious calcification. No change in the region of a biopsy site marker. ULTRASOUND: RIGHT BREAST The entire upper breast was examined with a high-frequency linear transducer. No suspicious mass. No suspicious area of altered echotexture. There is a 0.5 cm cyst with benign features in the 1 o'clock position 5 cm from the right nipple. There is an oval 0.3 cm cyst with benign features in the 1 o'clock position 6 cm from the right nipple. These 2 findings may contribute to what I suspect is some aeration of overlying structures on the original mammogram. Procedure Note Dino Vazquez MD - 04/18/2025 EXAM: DIAGNOSTIC MAMMOGRAPHY, UNILATERAL RIGHT ULTRASOUND: DIAGNOSTIC ULTRASOUND, UNILATERAL RIGHT HISTORY: Abnormal screening mammogram. Incompletely characterizedasymmetry superior right breast COMPARISON: Right mammography 03/26/25, 03/25/24, 03/15/23, a 03/25/22 TECHNIQUE: Tomosynthesis of the right breast using full field technique inthe lateral medial projection. ADDITIONAL IMAGING: Tomosynthesis of the right breast in the MLOprojection using spot compression High-frequency linear transducer ultrasound of the right breast targetedto the area(s) of clinical concern. Computer aided detection was not utilized. TISSUE DENSITY: There are scattered areas of fibroglandular density.(BI-RADS category B) FINDINGS: MAMMOGRAPHY: RIGHT BREAST: The suspected asymmetry in the superior right breast becomes much lessprominent with diagnostic imaging. There is an equivocal small roundequal density mass in the upper breast. No distortion. No suspicious calcification. No change in the region of abiopsy site marker. ULTRASOUND: RIGHT BREAST The entire upper breast was examined with a high-frequency lineartransducer. No suspicious mass. No suspicious area of altered echotexture. There is a 0.5 cm cyst with benign features in the 1 o'clock position 5 cmfrom the right nipple. There is an oval 0.3 cm cyst with benign features in the 1 o'clockposition 6 cm from the right nipple. These 2 findings may contribute to what I suspect is some aeration ofoverlying structures on the original mammogram. IMPRESSION: Decreased prominence of an asymmetry in the upper right breast withdiagnostic imaging. This may be partially related to 2 small cysts superimposed upon somefibroglandular tissue. Recommend diagnostic right mammography in 6 months ASSESSMENT: BI-RADS 3: PROBABLY BENIGN RECOMMENDATION(S): 1: Follow-up diagnostic mammogram RIGHT in 6 months. [facility] [address], [address] -------- FINAL REPORT -------- Dictated By: Dino Vazquez Dictated Date: 04/18/2025 10:11 ET Assigned Physician: Dino Vazquez Reviewed and Electronically Signed By: Dino Vazquez Signed Date: 04/18/2025 10:16 ET Workstation ID: [id number] Transcribed By: Self Edit Transcribed Date: 04/18/2025 10:11 ET us Zohra Sánchez MD IMG BI PROCEDURES Final Resul t from Last 3 Months or Most Recently Relevant to Health Maintenance Insurance [place] [id number] [facility] PUBLIC PLANS Care Teams Marker Assembler Relationship Specialty Start Date End Date Zohra Sánchez MD [address] [facility] [place] [phone] PCP - General Internal Medicine 01/22/25
[2025-08-08 10:18] LABS: MANUAL DIFF FLAG NO
[2025-08-08 10:27] LABS: Hematocrit 38.1 % (37.0-47.0); Hemoglobin 13.0 g/dl (12.0-16.0); Imm Gran Abs Auto 0.00 X10*3/uL (0.00-0.03); Imm Gran Pct Auto 0.0 % (0.0-0.4); Lymphocytes Absolute Auto 1.6 X10*3/uL (1.2-4.9); Mean Corpuscular HGB Conc 34.1 g/dl (31.0-35.0); Mean Corpuscular Hemoglobin 29.1 pg (27.0-33.0); Mean Corpuscular Volume 85.2 fL (80.0-98.0); NRBC Abs Auto 0.000 X10*3/uL (0.0-0.012); NRBC Pct Auto 0.0 /100WBC (0.0-0.2); Platelet Count 191 X10*3/uL (160-400); Red Blood Count 4.47 X10*6/uL (4.20-5.50); White Blood Count 4.3 X10*3/uL (4.8-10.8)
[2025-08-08 10:55] LABS: Alanine Aminotransferase 17 U/L (0-31); Albumin Level 4.6 g/dL (3.5-5.0); Alkaline Phosphatase 91 U/L (39-117); Anion Gap 11 (12-20); Aspartate Amino Transferase 26 U/L (5-31); Blood Urea Nitrogen 10 mg/dL (9-16); Calcium 9.7 mg/dL (8.4-10.2); Carbon Dioxide 28 mmol/L (22-29); Chloride 107 mmol/L (96-108); Cholesterol 210 mg/dL (<200); Estimated Glomerular Filt Rate 59; HDL Cholesterol 74 mg/dL (>40); Potassium 4.6 mmol/L (3.3-5.1); Sodium 141 mmol/L (135-145); Total Protein 7.3 g/dL (6.5-8.0); Triglycerides 46 mg/dL (<150)
[2025-08-11 23:38] LABS: Rubeola IgG (Measles) >300.00 AU/mL
== END 2025-08-08 06:58 | disposition home or self-care (01) ==
LOC: HO.HMGCLDS 06:57
PROVIDERS: PCP Internal Medicine; Visit Provider Internal Medicine
DX: Z00.00 Encounter for general adult medical examination without abnormal findings (principal); Z01.84 Encounter for antibody response examination; E55.9 Vitamin D deficiency, unspecified
CPT/HCPCS: 36415; 80053; 80061; 82306; 84443; 85025; 86735; 86762; 86765

== ENCOUNTER 2025-08-12 07:49 | Outpatient (AMB) | payer OTHER, SELFPAY ==
--- OUTSIDE RECORDS SUMMARY | 2025-08-12 07:54 | XMS_ITS | Clinical Summary ---
Author Organization [facility] Address [address] [place] [phone] Phone Care Team Providers Care Snowboard Instructor Name Role Phone Zohra Sánchez MD Primary Care Provider [phone] Surgical History Surgery Date Site/Laterality Comments BREAST BIOPSY PROCEDURE: [place] BIOPSY BREAST OPEN INCISIONAL OTHER SURGICAL HISTORY [...] AM EST [facility]ointment [facility] at [address] [phone] Health Maintenance Due Date Last [...] months. [facility]ammography location: [facility] at [address], [address] -------- FINAL REPORT -------- Dictated By: Dino Vazquez Dictated Date: 04/18/2025 10:11 ET Assigned Physician: Dino Vazquez Reviewed and Electronically Signed By: Dino Vazquez Signed Date: 04/18/2025 10:16 ET Workstation ID: [id number] Transcribed By: Self Edit Transcribed Date: 04/18/2025 [...] months. Mammography location: [facility] at [address], [address] -------- FINAL REPORT -------- Dictated By: Dino Vazquez Dictated Date: 04/18/2025 10:11 ET Assigned Physician: Dino Vazquez Reviewed and Electronically Signed By: Dino Vazquez Signed Date: 04/18/2025 10:16 ET Workstation ID: [id number] Transcribed By: Self Edit Transcribed Date: 04/18/2025 10:11 ET us Zohra Sánchez MD IMG BI PROCEDURES Final Resul t from Last 3 Months or Most Recently Relevant to Health Maintenance Insurance [employer] [place] [id number] [facility] PUBLIC [employer] Care Teams Snowboard Instructor Relationship Specialty Start Date End Date Zohra Sánchez MD [address] [facility] [place] [phone] PCP - General Internal Medicine 01/22/25
[2025-08-12 08:07] VITALS: BP 120/68; PULSE 82; RESP 18; TEMP 36.7; O2SAT 98; BMI 26.6
--- NOTE | 2025-08-12 08:07 | A.OFFPC_ITS ---
Vital Signs 08/12/25 08:07 Height 5 ft 4 in Weight 155 lb BMI 26.6 BP 120/68 Blood Pressure Location Rt brachial Position Sitting Respiration 18 Pulse 82 Pulse Source Pulse Oximeter Temp 98.1 F Temp Source Oral Pulse Oximetry (%) 98 Oxygen Delivery Method Room Air Intake Visit Reasons: Annual PE Intake Note: Pt is here today for PE. Allergies sulfamethoxazole (From Bactrim) Allergy (Intermediate, Verified 08/12/25 08:08) Rash trimethoprim (From Bactrim) Allergy (Intermediate, Verified 08/12/25 08:08) Rash amoxicillin (Augmentin) Allergy (Unknown, Verified 08/12/25 08:08) unknown clavulanic acid (Augmentin) Allergy (Unknown, Verified 08/12/25 08:08) unknown epinephrine Allergy (Unknown, Verified 08/12/25 08:08) unknown Tobacco use date assessed: 08/12/25 Dental Screening Dental Screen Date: 08/12/25 Did you have a dental visit in the last 12 months?: Yes Did you have a dental problem in the last 6 months where you did not have access to dental care?: No Was dental information given to patient?: Patient has dentist [facility] Medical History (Updated 08/12/25 @ 08:18 by Zohra Sánchez MD) Normal Pap smear Annual physical exam Hyperlipidemia Osteopenia History of mammogram Surgical History H/O colonoscopy No pertinent past surgical history Family History Father COPD (chronic obstructive pulmonary disease) Mother COPD (chronic obstructive pulmonary disease) Sister Cancer of pancreas Sister History of bilateral mastectomy Social History (Updated 08/12/25 @ 08:25 by Zohra Sánchez MD) Household Members Other:: lives with sister with dementia, 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 1. Little interest or pleasure in doing things: not at all 2. Feeling down, depressed, or hopeless: not at all 3. Trouble falling or staying asleep, or sleeping too much: not at all 4. Feeling tired or having little energy: not at all 5. Poor appetite or overeating: not at all 6. Feeling bad about yourself - or that you are a failure or have let yourself or your family down: not at all 7. Trouble concentrating on things, such as reading the newspaper or watching television: not at all 8. Moving or speaking so slowly that other people could have noticed. Or the opposite - being so fidgety or restless that you have been moving around a lot more than usual: not at all 9. Thoughts that you would be better off or of hurting yourself in some way: not at all Total score: 0 Depression Screening Interpretation: Negative Depression Screening Done: Yes [address]193 - PHQ-9 Billing: Yes Source: Developed by Drs. Sanchez Orozco, Yaima Shah, Myron Cazares and colleagues, with an educational barbara from [employer]. Thrive Questionnaire Date Thrive assessed: 08/12/25 I am a: Patient What is your living situation today?: I have a steady place to live Within the past 12 months, did the food you bought not last and you didn't have the money to get more?: Never true Within the past 12 months, did you worry whether your food would run out before you got money to buy more?: Never true Do you have trouble paying for medicines?: No Do you have trouble getting transportation to medical appointments?: No Do you have trouble paying your heating and electricity bill?: No Do you have trouble taking care of your child, family member or friend?: No Do you have trouble with day-to-day activities such as bathing, preparing meals, shopping, managing finances, etc.?: No Are you currently unemployed and looking for a job?: No Are you interested in more education?: No Please select the resources that you would like help with: None Currently or been in a relationship where the following occur: No concerns reported THRIVE Score: 0 AUDIT C Alcohol Use Questionnaire (AUDIT-C) 1. How often do you have a drink containing alcohol?: Never Total Score: 0 LUCY-7 AMB Questionnaire LUCY-7 Date LUCY - 7 assessed: 08/12/25 Feeling nervous, anxious, or on edge: 0 = Not at all Not being able to stop or control worryin = Not at all Worrying too much about different things: 0 = Not at all Trouble relaxin = Not at all Being so restless that it is hard to sit still: 0 = Not at all Becoming easily annoyed or irritable: 0 = Not at all Feeling afraid as if something awful might happen: 0 = Not at all Total LUCY-7 score (0-4 normal; 5-9 mild; 10-14 moderate; 15-21 severe): 0 Source: Developed by Drs. Sanchez Orozco, Yaima Shah, Myron Cazares and colleagues, with an educational barbara from [employer]. LUCY-7 Assessment Billing LUCY-7 Assessment Tool: LUCY-7 Assessment 52307 Review of Systems Const All systems reviewed & are unremarkable except as noted in HPI and below Eyes Reports no additional complaints ENT Reports no additional complaints Card Reports no additional complaints Resp Reports no additional complaints GI Reports no additional complaints Reports no additional complaints Physical exam (Primary Care) Vital Signs: Last Vital Signs Temp 98.1 F 08/12/25 08:07 Pulse 82 08/12/25 08:07 Resp 18 08/12/25 08:07 BP 120/68 08/12/25 08:07 Pulse Ox 98 08/12/25 08:07 Oxygen Delivery Method Room Air 08/12/25 08:07 BMI result Body Mass Index 26.6 Tobacco/Smoking Status: Tobacco use Status Tobacco use date assessed 08/12/25 08/12/25 08:12 Patient Tobacco Use Status Never used Tobacco 08/12/25 08:12 e-Cigarette/Vaping Use Never Used 08/12/25 08:12 PHQ-9: PHQ-9 Score PHQ-9: Total score 0 08/12/25 08:12 Depression Screening Interpretation: Negative Thrive Assessment: Date of Thrive Assessment Date Thrive assessed 08/12/25 08/12/25 08:12 Currently or been in a relationship where the following occur: No concerns reported Const General: no acute distress HENMT Head: Yes normal to inspection Ears: hearing grossly normal bilaterally Face and sinus: Yes normal facial exam Mouth: Normal oral and palatal mucosa present Eyes General: appearance normal, both eyes and all related structures Neck Neck: Yes no lymphadenopathy and Yes supple Resp Effort & Inspection: normal respiratory effort Auscultation: clear to auscultation bilaterally Cardio Rhythm: regular rhythm Heart sounds: S1 normal heart sound present and S2 normal heart sound present GI Inspection: Yes normal to inspection Palpation (GI): Soft to palpation Percussion: Yes normal to percussion Auscultation: normal bowel sounds Coding Level of Care Code Est Pt Prev Care 40-64y(28824) Diagnoses Hyperlipidemia E78.5 Annual physical exam Z00.00 Additional Codes LUCY-7 Assessment Billing - LUCY-7 Assessment Tool: LUCY-7 Assessment 47684 ([id number]) PHQ-9 - 86024 - PHQ-9 Billing: Yes ([id number]) Assessment & Plan Assessment & Plan (1) Hyperlipidemia: Comment: diet controlled Code(s): E78.5 - Hyperlipidemia, unspecified Category: Medical Plan: Continue low-cholesterol diet (2) Annual physical exam: Code(s): Z00.00 - Encounter for general adult medical examination without abnormal findings Category: Medical Plan: well balanced diet, regular exercise, discussed with the patient. She is up-to-date with the Pap smear a pelvic exam by hydraulic design engineer and due for colonoscopy in 2027
== END 2025-08-12 08:28 | disposition home or self-care (01) ==
LOC: HO.HMCC 07:50
PROVIDERS: PCP Internal Medicine; Visit Provider Internal Medicine
DX: E78.5 Hyperlipidemia, unspecified (principal); Z00.00 Encounter for general adult medical examination without abnormal findings

== ENCOUNTER → 2025-08-12 07:49 | Outpatient (BNVA) | payer OTHER, SELFPAY | PROVIDERS: PCP Internal Medicine; Visit Provider Internal Medicine | DX: Z00.00 Encounter for general adult medical examination without abnormal findings (principal); E78.5 Hyperlipidemia, unspecified | CPT/HCPCS: 96127; 99396 ==